=== PATIENT | male | born 1935 | race Caucasian/White ===

== ENCOUNTER 2017-01-22 16:00 | Inpatient (IN) | payer MEDICARE, BC ==
--- NOTE | ~2017-01-22 | HP ---
History And Physical [place] [id number] [facility] [place]. [address] NAME: BRITTANIE NGUYEN JR : 31 STATUS : ADM IN [facility]#: [id number] AGE: 81 ADM/REG DATE : 01/22/17 MR#: [id number] REPORT SERV DATE: 01/22/17 DICTATED BY: YON YOUNG DATE: 01/22/17 REPORT STATUS : Draft TRANSCRIBED BY: MODHeather DATE: 01/22/17 DATE OF ADMISSION: 01/22/2017 CHIEF COMPLAINT: Weakness. HISTORY OF PRESENT ILLNESS: The patient is an 81-year-old male with past medical history of COPD, pneumonia, bilateral hypertension, AICD, recently placed in September of this year for tachy-milan type symptoms, CABG, history of coronary disease, hyperlipidemia, CVA, vertigo, type 2 diabetes, who presents after having progressive weakness over the last two weeks to the point where he has not been even getting out of bed and just has only been minimally even watching TV which who is at bedside reports is quite uncharacteristic of him. The patient reports that weakness is just generalized, did have cough a week ago but this has since improved. Symptoms have been constant, moderate severity, has no pain radiating symptoms. Did have fever up to 100.3, but this has improved. No nausea, vomiting, diarrhea, chills, does have pronounced weakness. Occasional shortness of breath and dyspnea on exertion with walking. No gross wheezing symptoms. No worsening factors but no relieving factors. Symptoms are still currently present with weakness and despite different type of diet changes, the patient has not had any improvement. REVIEW OF SYSTEMS: GENERAL: No current fevers but recently has had fevers. No chills. Positive for weakness and mild weight loss. Does per feel dehydrated. EYES: No eye pain or visual changes. ENT: Dry mouth. Does have mild congestion. NEURO: No headache or confusion. SKIN: Dry skin. No rashes. RESPIRATORY: Shortness of breath with decreased exercise tolerance. CV: No chest pain or palpitations. GI: No nausea, vomiting, or diarrhea. : No dysuria or hematuria. MUSCULOSKELETAL: Myalgias, arthralgias, and generalized weakness. END: Does have fatigue. No polyuria. HEME: No bleeding or bruising. IMMUNOLOGIC: No rhinorrhea. PSYCH: No anxiety or confusion. PAST MEDICAL HISTORY: Coronary disease with CABG at [facility], COPD, diabetes, right pleural effusion, vertigo with benign positional vertigo, pneumonia bilateral, hypertension, and hyperlipidemia. SURGICAL HISTORY: CABG in 2014 at [facility] and recent AICD pacer in September. ALLERGIES: NO KNOWN DRUG ALLERGIES. SOCIAL HISTORY: , accompanied by . Prior single naval marine engineer, retired from the [employer] company. Rare wine, quit smoking 10 years ago. No illicits. History And Physical [address] [address] NAME: BRITTANIE NGUYEN JR : 31 STATUS : ADM IN [facility]#: [id number] AGE: 81 ADM/REG DATE : 01/22/17 MR#: [id number] REPORT SERV DATE: 01/22/17 DICTATED BY: YON YOUNG DATE: 01/22/17 REPORT STATUS : Draft TRANSCRIBED BY: CHRISTO DATE: 01/22/17 FAMILY HISTORY: Heart disease. ALLERGIES: NO KNOWN DRUG ALLERGIES. HOME MEDICATIONS: Albuterol, Xanax, Artificial Tears, Leticia aspirin, Coreg, vitamin B, fenofibrate, glipizide, hydralazine, Imdur, Claritin, Mag oxide, metformin, rosuvastatin, Januvia, and Mucinex. PHYSICAL EXAMINATION: VITAL SIGNS: The patient's blood pressure 116/89, temperature 97.0, pulse 81, respirations 16, and O2 sats 93%. GENERAL: No acute distress. Calm, pleasant, well developed, well nourished. EYES: No scleral icterus. EOMI. ENT: Nares patent. Dry mucous membranes. RESPIRATORY: Clear to auscultation in upper lung connell. Mild coarse breath sounds in lower lung connell. CV: Regular rate. No rubs or gallops. GI: Soft, nontender, and nondistended. Bowel sounds positive. : Deferred. MUSCULOSKELETAL: Moves all extremities x4. Equal strength. SKIN: Warm, dry, but does have tenting bilaterally. LYMPH: No cervical or supraclavicular lymphadenopathy. HEME: No bleeding or bruising. NEURO: Alert and oriented but generalized weakness. PSYCH: Appropriate mood and affect. DATA: Chest x-ray, increased density in the right lung base. Possible atelectasis versus infiltrates. Prior fibrotic lung changes, stable basilar pleural thickening. Urinalysis; negative leukocyte esterase and nitrites. Sodium 133, potassium 4.3, chloride 98, bicarb 26, BUN and creatinine 23 and 1.37. Glucose 198, calcium 9.0, magnesium 2.0. Troponin negative. WBC 14.3, H and H 12.1 and 36.8, platelets 474, INR 1.3. ABG; pH 7.46, pCO2 of 34, pO2 of 69, bicarb 23.1. EKG not on chart. ASSESSMENT AND PLAN: 1. Pneumonia, community acquired with CURB-65 of 2. 2. Acute hypoxia improved with treatments in the emergency room. 3. Chronic obstructive pulmonary disease history, chronic. 4. Hypertension. 5. Weakness. 6. Hyperlipidemia. 7. Vertigo. 8. Diabetes type 2. History And Physical [address] [address] NAME: BRITTANIE NGUYEN JR : 31 STATUS : ADM IN [facility]#: [id number] AGE: 81 ADM/REG DATE : 01/22/17 MR#: [id number] REPORT SERV DATE: 01/22/17 DICTATED BY: YON YOUNG DATE: 01/22/17 REPORT STATUS : Draft TRANSCRIBED BY: CHRISTO DATE: 01/22/17 PLAN: 1. For pneumonia IV antibiotics, check cultures, flu, strep test pending, urine Strep and Legionella pending cultures and sputum. The patient has had improvement with treatment in the emergency room. Does have generalized weakness at this time. CURB 65, currently 2. IV Rocephin and azithromycin at this time. 2. Acute hypoxia, noted on ABG. O2 improved with steroids, O2, and breathing treatments given in emergency room. No wheezes actively and maintaining greater than 90% off O2 but we will have supplemented by nasal cannula as needed. 3. COPD, not in acute exacerbation. O2 has been given, steroids in the emergency room, 125 Solu-Medrol, does not appear in acute exacerbation. We will clinically monitor for repeat dose of steroids at this time, likely secondary to underlying pneumonia has history of fibrotic changes lower lungs with pleural effusion history. We will monitor, repeat chest x-ray. The patient is clinically volume depleted. 4. Hypertension, on medications. 5. Weakness. Volume depleted, IV fluids. We will additionally check CPK. The patient is on statin. PT OT evaluations. The patient is quite debilitated from baseline per family. 6. Hyperlipidemia, on medications. Check CPK. 7. Vertigo, chronic, give home medications. Supportive treatment. PT OT. 8. Diabetes type 2. Sliding scale insulin. Hold p.o. medications at this time. Reassess and have diabetic education. All questions answered to the patient and family at bedside. I anticipate greater than two midnight inpatient stay due to two week history of weakness, comorbidities, and pneumonia. DDN/MODL Yon Young MD / [id number] CC: Jenni Claudio
--- NOTE | ~2017-01-22 | DS ---
Discharge Summary [place] [address] [id number] [place]. [address] NAME: BRITTANIE NGUYEN JR : 31 STATUS : DIS IN PAT#: [id number] AGE: 81 ADM/REG DATE : 01/22/17 MR#: [id number] REPORT SERV DATE: 01/25/17 DICTATED BY: ALMAS HECTOR DATE: 01/25/17 REPORT STATUS : Draft TRANSCRIBED BY: CHRISTO DATE: 01/25/17 ADMISSION DATE: 01/22/2017 DISCHARGE DATE: 01/25/2017 DIAGNOSES: 1. Hypoxia. 2. Right lower lobe pneumonia. 3. Chronic obstructive pulmonary disease exacerbation. 4. Leukocytosis. 5. Debility, improved. 6. Type 2 diabetes. FOLLOWUP: The patient should follow up with the primary care physician in one to two weeks. DISCHARGE MEDICATIONS: Aspirin 325 mg p.o. daily, azithromycin 250 mg p.o. daily for three days, Coreg 6.25 mg p.o. b.i.d., vitamin B12 at 500 mcg p.o. q.h.s., fenofibrate 160 mg p.o. at bedtime per home dose, Flonase one spray in each nostril b.i.d. for seven days, Glucotrol 10 mg p.o. b.i.d., metformin 1000 mg p.o. b.i.d., isosorbide mononitrate 15 mg p.o. daily, magnesium oxide 400 mg p.o. b.i.d. per home dose, Januvia 100 mg p.o. daily per home dose, Crestor 10 mg p.o. q.h.s., Xanax 0.5 mg p.o. q.h.s. p.r.n. per home dose, Mucinex 1 tab p.o. b.i.d. p.r.n., Claritin 10 mg p.o. daily p.r.n. albuterol MDI one to two puffs inhaled every four hours, artificial tears p.r.n., Keflex 500 mg p.o. b.i.d. for five days, Spiriva inhaled daily, Symbicort 160/4.5 two puffs inhaled b.i.d., prednisone 30 mg p.o. daily for one day. Hold hydralazine. The patient may restart if systolic blood pressure is greater than 140. HOSPITAL COURSE: Please see H and P dictated by Dr. Skip De La Paz. This is an 81 years old male with a past medical history of COPD, hypertension, coronary artery disease status post CABG in the past, who presents with generalized weakness and low-grade fever of 100.3 with a positive cough. The patient states he has had a cough for over a week with progressive generalized weakness. He presented to [facility] ER with some mild coarse breath sounds. Had a chest x-ray with findings of right lower lobe pneumonia. He was admitted to the Hospitalist Service with acute hypoxia and also for treatment for pneumonia, placed on IV antibiotics. Blood cultures were no growth to date at the time of discharge. He does have a history of COPD. Initially, it was felt that he did not have an exacerbation, but during hospital stay, he did have signs of mild COPD exacerbation and did require a short course of steroids. The patient's overall clinical status improved throughout his hospital course. He did require home O2 at the time of discharge. According to the , home oxygen has been ordered for the patient by the primary care, but the patient has not received at home portable oxygen, but does have already an oxygen concentrator only for night, but not portable. Case Management was consulted to assist with home O2 prior to discharge. The patient was discharged home in stable condition to follow up with his primary care physician. This discharge required greater than 35 minutes. Discharge Summary [address] [address] NAME: LORNE NGUYENIrena MAY JR : 31 STATUS : DIS IN [facility]#: [id number] AGE: 81 ADM/REG DATE : 01/22/17 MR#: [id number] REPORT SERV DATE: 01/25/17 DICTATED BY: ALMAS HECTOR DATE: 01/25/17 REPORT STATUS : Draft TRANSCRIBED BY: CHRISTO DATE: 01/25/17 Also please note, the patient did receive diabetic education during this hospital course. [facility]/CHRISTO Almas Hector M.D. / [id number] CC: Jenni Cuba
[2017-01-22 15:35] LABS: BASOPHILS 0.3 %; BASOPHILS ABSOLUTE 0.05 10/3/uL (0.0-0.16); EOSINOPHILS 1.1 %; EOSINOPHILS ABSOLUTE 0.16 10/3/uL (0.0-0.53); ER CBC TAT 0 Hrs 03 Mins; HEMATOCRIT 36.8 % (40.0-51.0); HEMOGLOBIN 12.1 g/dL (13.6-17.8); IMMATURE GRANULOCYTES 0.8 %; IMMATURE GRANULOCYTES ABSOLUTE 0.12 10/3/uL (0.0-0.11); LYMPHOCYTES ABSOLUTE 1.71 10/3/uL (0.67-4.30); MANUAL DIFF NO %; MEAN CORPUS HGB CONC 32.9 g/dL (32.0-36.0); MEAN CORPUSCULAR HEMOGLOB 27.7 pg (26.0-34.0); MEAN CORPUSCULAR VOLUME 84.2 fL (80-100); MEAN PLATELET VOLUME 8.6 fL (9.2-13.0); MONOCYTES 7.8 %; MONOCYTES ABSOLUTE 1.11 10/3/uL (0.21-1.20); NEUTROPHILS ABSOLUTE 11.14 10/3/uL (2.02-8.40); PLATELET COUNT 474 10/3/uL (150-400); RBC DISTRIBUTION WIDTH 13.5 % (12.0-16.0); RED CELL COUNT 4.37 10/6/uL (4.7-6.1); WHITE BLOOD CELLS 14.3 10/3/uL (4.5-10.5)
[2017-01-22 15:45] LABS: INTERNATIONAL NORMAL RATI 1.3 UNITS (-); PARTIAL THROMBO TIME 28.1 SEC (22.5-37.2)
[2017-01-22 15:45] LABS: BE (BASE EXCESS) -0.2 MEQ/L (0 +/- 2.5); CARBOXYHEMOGLOBIN 1.9 % (0-3); HCO3 (ACTUAL BICARBONATE) 23.1 MEQ/L (23-27); HEMOBLOGIN CONTENT 12.8 G/DL (14-18); INSTRUMENT SERIAL # 8087; METHEMOGLOBIN 0.1 % (0-3); O2 CONTENT 16.7 VOL% (18-24); PCO2 (CO2 TENSION) 34 MMHG (35-45); PO2 (O2 TENSION) 69 MMHG (79-93); SAMPLE Arterial; pH 7.46 (7.37-7.43)
[2017-01-22 15:46] LABS: PROTIME (NOT ORD) 16.5 SEC (12.0-14.5)
[2017-01-22 15:51] LABS: CHEST PAIN PROFILE TAT 0 Hrs 19 Mins; CHLORIDE, SERUM 98 MMOL/L (96-112); CO2 (CARBON DIOXIDE) 26 MMOL/L (24-34); CREATININE 1.37 MG/DL (0.70-1.30); GFR AFRICAN AMERICAN 55 ML/MIN (>=60); GFR NON AFRICAN AMERICAN 47 ML/MIN (>=60); POTASSIUM, SERUM 4.3 MMOL/L (3.5-5.3); TROPONIN I <0.02 NG/ML (<0.05)
[2017-01-22 15:53] LABS: BUN (BLOOD UREA NITROGEN) 23 MG/DL (6-23); GLUCOSE, SERUM 198 MG/DL (60-99); SODIUM, SERUM 133 MMOL/L (135-148)
[~2017-01-22 16:00] MED LIST: ALKA-SELTZE4 PO; ASAB PO; BYSTOLIC5 MG PO; COREG12 PO; CRESTOR10 PO; CYANO1000T PO; DIAM250B PO; GGDM5ML PO; GLUCOPHAGE1000 MG PO; GLUCOTRO10 PO; HALF81 PO; HYZAAR1 TAB PO; IMDUR30 PO; JANUVIA50 PO; K-TABS10 MEQ PO; KLOR-CON M1010 MEQ PO; LOFIBRA160 MG PO; MUCINEX600 MG PO; NORCO1 TA1 PO; OCUFLOX OT; PRIN20 PO; PROAIR HFA INH; RX EAR DROPS OT; SINGULAIR1 PO; SPIRIVA INH; TEARS NATURA OPH; TEARS PLUS OPH; VITAMIN B-121000 MC1 SL; X25 PO; X5 PO
[2017-01-22 16:12] LABS: WBC (NOT ORDERED) (RFLEX) 0 (0-5)
[2017-01-22 16:20] LABS: ASCORBIC ACID (UR NOT ORDER) NEG (NEG); BILIRUBIN, URINE NEGATIVE (NEG); ER URINALYSIS TAT 0 Hrs 09 Mins; KETONE, URINE NEGATIVE (NEG); LEUKOCYTE ESTERASE(NOT OR NEG (NEG); NITRITE (URINE) NEG (NEG)
[2017-01-22] MEDS ORDERED: GLUCOPHAGE1000 MG PO (16:39)
[2017-01-22] MEDS ORDERED: JANUVIA100 MG PO (16:39)
[2017-01-22] MEDS ORDERED: GLUCOTRO10 PO (16:39)
[2017-01-22] MEDS ORDERED: ASABAYER PO (16:40)
[2017-01-22] MEDS ORDERED: MAGOX4 PO (16:40)
[2017-01-22] MEDS ORDERED: APRES10B PO (16:40)
[2017-01-22] MEDS ORDERED: COREG6 PO (16:40)
[2017-01-22] MEDS ORDERED: IMDUR30 PO (16:49)
[2017-01-22] MEDS ORDERED: CRESTOR10 PO (16:50)
[2017-01-22] MEDS ORDERED: X5 PO (16:51)
[2017-01-22] MEDS ORDERED: LOFIB160 PO (16:51)
[2017-01-22] MEDS ORDERED: B12250T PO (16:51)
[2017-01-22] MEDS ORDERED: MUCINEX DM PO (16:52)
[2017-01-22] MEDS ORDERED: CLARIT10 PO (16:52)
[2017-01-22] MEDS ORDERED: TEARS PURE OPH (16:53)
[2017-01-22] MEDS ORDERED: PROAIR HFA INH (16:53)
[2017-01-22 22:26] LABS: PROCALCITONIN 0.19 ng/mL (<0.5)
[2017-01-22 22:55] LABS: INFLUENZA A SCREEN NEGATIVE (NEGATIVE); INFLUENZA B SCREEN NEGATIVE (NEGATIVE)
[2017-01-23 06:53] LABS: BASOPHILS 0.2 %; BASOPHILS ABSOLUTE 0.02 10/3/uL (0.0-0.16); EOSINOPHILS 0 %; HEMATOCRIT 34.7 % (40.0-51.0); HEMOGLOBIN 11.4 g/dL (13.6-17.8); IMMATURE GRANULOCYTES ABSOLUTE 0.09 10/3/uL (0.0-0.11); LYMPHOCYTES ABSOLUTE 0.96 10/3/uL (0.67-4.30); MEAN CORPUS HGB CONC 32.9 g/dL (32.0-36.0); MEAN CORPUSCULAR HEMOGLOB 27.7 pg (26.0-34.0); MEAN CORPUSCULAR VOLUME 84.4 fL (80-100); MEAN PLATELET VOLUME 8.9 fL (9.2-13.0); MONOCYTES 2.1 %; MONOCYTES ABSOLUTE 0.18 10/3/uL (0.21-1.20); NEUTROPHILS 85.7 %; NEUTROPHILS ABSOLUTE 7.45 10/3/uL (2.02-8.40); PLATELET COUNT 480 10/3/uL (150-400); RBC DISTRIBUTION WIDTH 13.7 % (12.0-16.0); RED CELL COUNT 4.11 10/6/uL (4.7-6.1); WHITE BLOOD CELLS 8.7 10/3/uL (4.5-10.5)
[2017-01-23 06:54] LABS: MANUAL DIFF NO %
[2017-01-23 07:09] LABS: CALCIUM, SERUM 8.6 MG/DL (8.5-10.4); CHLORIDE, SERUM 101 MMOL/L (96-112); CO2 (CARBON DIOXIDE) 23 MMOL/L (24-34); CPK 32 U/L (0-200); CREATININE 1.15 MG/DL (0.70-1.30); GFR AFRICAN AMERICAN 68 ML/MIN (>=60); GFR NON AFRICAN AMERICAN 59 ML/MIN (>=60); POTASSIUM, SERUM 4.7 MMOL/L (3.5-5.3); SGOT(AST) 31 U/L (5-40); SGPT(ALT) 34 U/L (5-65); SODIUM, SERUM 134 MMOL/L (135-148); TOTAL BILIRUBIN 0.3 MG/DL (0-1.2); TOTAL PROTEIN 6.5 G/DL (6.0-8.5)
[2017-01-23 07:18] LABS: A/G RATIO 0.4 (0.7-1.9); ALBUMIN 1.8 G/DL (3.5-5.0); ALKALINE PHOSPHATASE 84 U/L (45-117); BUN (BLOOD UREA NITROGEN) 27 MG/DL (6-23); GLOBULIN 4.7 G/DL (2.5-4.1); GLUCOSE, SERUM 320 MG/DL (60-99)
[2017-01-25] MEDS ORDERED: ZITH250 PO (09:50)
[2017-01-25] MEDS ORDERED: FLONASE NAS (09:51)
[2017-01-25] MEDS ORDERED: K500 PO (09:59)
[2017-01-25] MEDS ORDERED: SYMBICORT 160/41 INH INH (09:59)
[2017-01-25] MEDS ORDERED: SPIRIVA INH (10:00)
[2017-01-25] MEDS ORDERED: P10 PO (10:08)
== END 2017-01-25 13:01 | disposition home or self-care (01) | DRG 189 ==
LOC: ER 16:00 → 5SO 18:49 → 7NO 19:00
PROVIDERS: Emergency Medicine; Internal Medicine; Student in an Organized Health Care Education/Training Program
DX: J96.01 Acute respiratory failure with hypoxia (principal); J18.9 Pneumonia, unspecified organism; J44.0 Chronic obstructive pulmonary disease with (acute) lower respiratory infection; E11.9 Type 2 diabetes mellitus without complications; J44.1 Chronic obstructive pulmonary disease with (acute) exacerbation; I10 Essential (primary) hypertension; E78.5 Hyperlipidemia, unspecified; R42 Dizziness and giddiness; Z95.1 Presence of aortocoronary bypass graft; Z79.84 Long term (current) use of oral hypoglycemic drugs
CPT/HCPCS: 36600; 71010; 80048; 80053; 81001; 82550; 82805; 82962; 83036; 83605; 83735; 84145; 84484; 85025; 85610; 85730; 87040; 87070; 87205; 87449; 87804; 87880; 94640; 96374; 99285; A9270-GY; J0456; J2930